=== PATIENT | female | born 1985 | race Two or more races ===

== ENCOUNTER 2024-06-18 13:57 | Emergency (ER) | payer OTHER ==
[~2024-06-18] VITALS: Ht 152.4 cm; Wt 62.6 kg
[2024-06-18] MEDS ORDERED: RINGERS SOLUTION,LACTATED 1,000 ML IV STA (15:18)
[2024-06-18] MEDS ORDERED: FAMOtidine 10 MG/ML (4ML VIAL) IV STA (15:20)
[2024-06-18] MEDS ORDERED: ONDANSETRON HCL 2 MG/ML VIAL IV ONE (15:30)
[2024-06-18] MEDS ORDERED: ONDANSETRON HCL 2 MG/ML VIAL ONE (15:40)
[2024-06-18] MEDS ORDERED: FAMOTIDINE/PF 20 MG/2 ML VIAL ONE (15:41)
[2024-06-18 15:52] LABS: HEMATOCRIT 39.8 % (36.0-45.00); HEMOGLOBIN 13.6 g/dL (12.0-15.00); MEAN CELL VOLUME 89.6 fL (80.00-100.00); MEAN CORPUSCULAR HEMOGLOBIN 30.7 pg (27.00-32.0); MEAN CORPUSCULAR HGB CONC 34.2 g/dl (32.0-36.0); PLATELET COUNT 213 K/uL (150-450); RED BLOOD COUNT 4.45 M/uL (4.00-6.00); RED CELL DISTRIBUTION WIDTH 13.3 % (11.5-14.5)
[2024-06-18 16:19] LABS: CALCIUM 9.5 mg/dL (8.5-10.1); CREATININE SERUM 0.7 mg/dL (0.55-1.02); GFR 94.15; POTASSIUM 3.67 mEq/L (3.5-5.1)
[2024-06-18 17:05] LABS: PH,URINE 5.5 (5.0-8.0); URINE APPEARANCE Clear; URINE BILIRRUBIN Negative (NEGATIVE); URINE BLOOD Negative; URINE COLOR Dark Yellow; URINE GLUCOSE Negative (NEGATIVE); URINE KETONE 15 (NEGATIVE); URINE LEUKOCYTE Negative; URINE NITRATE Negative; URINE PROTEIN 30 (NEGATIVE)
[2024-06-18 17:09] LABS: URINE BACTERIA 253.3 uL (0.0-1933); URINE CAST 5.44 uL (0.0-1.40); URINE EPITHELIAL CELLS 38.1 uL (0.0-38.8); URINE RBC 23.2 uL (0.0-20.8); URINE WBC 16.7 uL (0.0-23.2)
[2024-06-18 17:22] LABS: URINE MUCUS HEAVY
== END 2024-06-18 17:40 | disposition home or self-care (01) ==
LOC: ER 13:58
PROVIDERS: General Practice
DX: K52.89 Other specified noninfective gastroenteritis and colitis (principal); R19.7 Diarrhea, unspecified; Z88.0 Allergy status to penicillin

== ENCOUNTER 2024-07-11 08:31 | Outpatient (CLI) | payer OTHER | END 2024-07-11 08:34 | disposition home or self-care (01) | LOC: TOM 08:31 | PROVIDERS: ATTEND Student in an Organized Health Care Education/Training Program | DX: N91.2 Amenorrhea, unspecified (principal) ==